=== PATIENT | male | born 1955 | race Caucasian/White ===

== ENCOUNTER 2019-11-12 17:29 | Inpatient (IN) ==
[2019-11-12] MEDS ORDERED: PROTONIX IV ONE (17:50)
[2019-11-12] MEDS ORDERED: NS 1,000 ML IV ONE ×3 (17:50→21:00)
[2019-11-12] MEDS ORDERED: SODIUM CHLORIDE 0.9% INJ ONE ×3 (17:50→21:30)
[2019-11-12] MEDS ORDERED: ZOFRAN IV ONE (17:50)
--- NOTE | 2019-11-12 17:57 | PROVIDER DOCUMENTATION ---
HPI-Abdominal Pain/GI Problem - General Chief Complaint: GI Bleed Stated Complaint: black emesis Time Seen by Provider: 11/12/19 17:43 Source: patient Allergies/Adverse Reactions: Patient Allergies Allergy/AdvReac Type Severity Reaction Status Date / Time naproxen sodium * Allergy ITCHING Verified 04/22/19 13:08 [From [facility]] Home Medications: Home Medication List Medication Instructions Recorded Confirmed Last Taken Type Metoprolol [Lopressor] 25 mg PO DAILY #30 tablet 04/22/17 11/12/19 06/07/18 Rx Amlodipine Besylate 5 mg PO DAILY 06/07/18 11/12/19 06/07/18 History Aspirin [Aspir-Low] 81 mg PO DAILY 11/12/19 11/12/19 Unknown History - History of Present Illness-ABD Nature of Presenting Problems: Patient is a 63 yom who presents via EMS following an episode of black coffee- ground emesis and a syncope episode following the episode of vomiting. Pt states he was sitting on the ground when he vomited and passed out. States he has had generalized weakness all day today and mild intermittent RLQ abdominal pain x 2 days. Denies melena or any other complaints. Review of Systems - Adult - REVIEW OF SYSTEMS - ADULT Constitutional: reports: no symptoms reported. denies: fever Eyes: reports: no symptoms reported Ears, Nose, Mouth & Throat: reports: no symptoms reported Cardiovascular: reports: no symptoms reported Respiratory: reports: no symptoms reported Gastrointestinal: reports: see HPI Genitourinary: reports: no symptoms reported Musculoskeletal: reports: see HPI (generalized weakness) Integumentary: reports: no symptoms reported Neurological: reports: no symptoms reported Psychiatric: reports: no symptoms reported Endocrine: reports: no symptoms reported Hematologic/Lymphatic: reports: no symptoms reported Allergic/Immunologic: reports: no symptoms reported All Other Systems: Reviewed and Negative Past History - Adult - PAST MEDICAL HISTORY-ADULT Review of Records: reports: Nursing Assessment Review, Medications Reviewed, Social history reviewed & non-contributory. Major Childhood Illnesses: reports: denies history Cardiovascular: reports: HTN Respiratory: reports: denies history Gastrointestinal: reports: denies history Obstetrical/Gynecological: reports: denies history Genitourinary: reports: denies history Musculoskeletal: reports: denies history Neurological: reports: headaches/migraines Endocrine/Immune: reports: denies history Other Conditions: reports: denies history - PRIOR SURGERIES/PROCEDURES Surgical/Procedure History: reports: reviewed, not pertinent, orthopedic (extremity), back/neck - IMMUNIZATION STATUS Childhood Immunizations: See Nurse Assessment Flu Vaccine: See Nurse Assessment - FAMILY HISTORY Family History: reviewed, not pertinent - SOCIAL HISTORY Smoking: cigarettes, less than 1 pack/day Substance Use: none/never Alcohol Use Frequency: never Physical Exam-General - PHYSICAL EXAM-ADULT Initial Vital Signs Reviewed: Yes - CONSTITUTIONAL General Appearance: alert, no apparent distress. negative: lethargic, slow to respond - EYES Eyes: PERRL/EOMI, pink conjunctivae - HEAD, EARS, NOSE, MOUTH & THROAT HENMT: normocephalic/atraumatic, other (dried dark blood noted to lips) - NECK Neck: full range of motion, supple, normal inspection - RESPIRATORY Respiratory: chest non-tender, lungs clear, normal breath sounds, no pleuratic chest pain, no respiratory distress, no accessory muscle use - CARDIOVASCULAR Cardiovascular: normal peripheral pulses, regular rate, rhythm, no edema, no gallop, no murmur - GASTROINTESTINAL (ABDOMEN) Abdominal Exam: normal bowel sounds, non tender, distended. negative: guarding, rigid, tenderness - MUSCULOSKELETAL Back Exam: normal inspection Extremity: normal range of motion, non-tender, normal inspection - SKIN Integumentary: normal color, warm/dry. negative: cyanosis, diaphoresis, jaundice, mottled, pallor - NEUROLOGIC Neurologic: grossly normal, no motor/sensory deficits - PSYCHIATRIC Psych/Mental Status: normal mood/affect, normal thought content, normal thought process, oriented x 3 Progress - PLAN OF CARE/RESULTS Progress/Plan/Lab Results: Vital Signs - 8 hr 11/12/19 17:47 Temperature 98.2 F Pulse Rate 88 Respiratory Rate 24 Blood Pressure 105/67 O2 Sat by Pulse Oximetry 92 L Laboratory Results - last 24 hr 11/12/19 17:45 POC Glucose 132 H Orders Category Date Time Status Cardiac Monitoring NOW Care 11/12/19 17:52 Active IV Insertion NOW Care 11/12/19 17:52 Active NEWS Score >or=5:Order NEWS Bundle S.O. NOW Care 11/12/19 17:51 Active Notify Provider of NEWS Score NOW Care 11/12/19 17:52 Active Nursing- Obtain EKG ONCE Care 11/12/19 17:50 Active Orthostatic Vital Signs NOW Care 11/12/19 17:50 Active CHEST-1 VIEW [RAD] Stat Exams 11/12/19 17:52 Ordered CHEST-2 VIEWS [RAD] Stat Exams 11/12/19 17:[address] ABD/PELVIS W/IV CONT ONLY [CT] Stat Exams 11/12/19 17:[address] HEAD W/O CONTRAST [CT] Stat Exams 11/12/19 17:49 Ordered BLOOD CULTURE [BLDCUL] Stat Lab 11/12/19 17:52 Uncollected CBC WITH DIFF [HEME] Stat Lab 11/12/19 17:52 Uncollected CK PROFILE [SP CHEM] Stat Lab 11/12/19 17:52 Uncollected COMPREHENSIVE METABOLIC PANEL [CHEM] Stat Lab 11/12/19 17:48 Uncollected COMPREHENSIVE METABOLIC PANEL [CHEM] Stat Lab 11/12/19 17:53 Uncollected LACTATE, PLASMA [CHEM] Q3H Lab 11/12/19 18:00 Uncollected LACTATE, PLASMA [CHEM] Q3H Lab 11/12/19 21:00 Uncollected LACTATE, PLASMA [CHEM] Q3H Lab 11/13/19 00:00 Uncollected OCCULT BLOOD SCREENING [STOOL] Stat Lab 11/12/19 17:50 Uncollected PROTIME WITH INR [COAG] Stat Lab 11/12/19 17:50 Uncollected TROPONIN T HIGH SENSITIVITY Stat Lab 11/12/19 17:50 Uncollected TYPE & SCREEN [BBK] Stat Lab 11/12/19 17:50 Uncollected UA NIMS W/REFLEX CULT [URINALYSIS] Stat Lab 11/12/19 17:50 Uncollected 0.9% Sodium Chloride Inj [Ns] 1,000 ml Med 11/12/19 17:50 Active IV 999 mls/hr Ondansetron [Zofran] Med 11/12/19 17:50 Discontinued 4 mg IV NOW ONE Pantoprazole [Protonix] Med 11/12/19 17:50 Discontinued 40 mg IV NOW ONE Sodium Chloride 0.9% Med 11/12/19 17:50 Discontinued 10 ml INJ NOW ONE O2 Per Protocol Stat Oth 11/12/19 17:52 Active EKG [EKG] Stat Ther 11/12/19 17:50 Ordered Saw and discussed patient with JER Monsalve. Patient with WBC to 24k of unknown cause, covered with antibiotics. Reports coffee ground emesis, orthostatic hypotension but H/H stable at this time. CT showing mass around aorta which is concerning. Unknown cause at this time. Patient admitted to hospitalist. Adi Monsalve spoke to Dr Gaines and Dr Beltrán for consults. Further orders to be placed by hosp. Explained all the results to the patient. He has no questions at this time and appears comfortable. Result Diagrams: 11/12/19 18:15 11/12/19 18:15 - REASSESSMENT Reassessment #1 Time Reassessed: 20:19 Status: improving (Nausea improved with meds. No vomiting since meds. Update given. Awaiting CT reports.) - XRAY 1 XRAY Study: Chest ([facility] - [address] [facility] [address], [place] [address] [facility] - [address] [place] [address] Department of Imaging Patient: LING ANDERSON EADM Date: 11/12/19#: [id number] : 8A Status: [facility]#: [id number] Age/Sex: 63/MRoom/Bed: Loc: ED Ordering Physician: Sim Monsalve Family Physician: None,PCP Reason for Procedure: ruq pain, sepsis protocol Signed EXAM: CHEST-1 VIEW HISTORY: ruq pain, sepsis protocol TECHNIQUE: Single view COMPARISON: 06/13/2018 FINDINGS: The lungs are well expanded. The heart is not enlarged. The vessels are not distended. There are no infiltrates. No effusion identified. IMPRESSION: No pneumonia Electronically signed by Bib Traylor 11/12/2019 7:13 PM 11/12/191912 Interpreting Physician: Bib Traylor MD Dictated Date/Time: 11/12/191912 cc: Sim Monsalve; None,PCP) - CT/MRI 1 CT Study: Head ([facility] - [address], [address], [place] [address] [facility] - [facility] [place] [address] Department of Imaging Patient: LING ANDERSON EA Date: 11/12/19MR#: [id number] : [facility] Status: [facility]#: [id number] Age/Sex: 63/MRoom/Bed: Loc: ED Ordering Physician: Sim Monsalve Family Physician: None,PCP Reason for Procedure: syncope Signed EXAM: CT HEAD W/O CONTRAST HISTORY: syncope TECHNIQUE: CT head without contrast COMPARISON: None. FINDINGS: No parenchymal hemorrhage. No epidural or subdural hematoma. No subarachnoid hemorrhage. No mass identified on this noncontrasted exam. No hydrocephalus. No sinus opacification. IMPRESSION: No hemorrhage. Negative brain CT without contrast. This exam was performed using automated exposure control, adjustment of mA or kV according to patient size, and/or use of iterative reconstruction technique. Electronically signed by Bib Traylor 11/12/2019 8:25 PM 11/12/192024 Interpreting Physician: Bib Traylor MD Dictated Date/Time: 11/12/192023 cc: Sim Monsalve; None,PCP) 2 CT Study: Abdomen, Pelvis ([facility] - [address], [address], [place] [address] [facility] - [facility] [place] [address] Department of Imaging Patient: LING ANDERSON EADM Date: 11/12/19MR#: [id number] : 1955DM Status: [facility]#: [id number] Age/Sex: 63/MRoom/Bed: Loc: ED Ordering Physician: Sim Monsalve Family Physician: None,PCP Reason for Procedure: hematemesis, syncope Signed EXAM: CT ABD/PELVIS W/IV CONT ONLY HISTORY: hematemesis, syncope TECHNIQUE: CT abdomen and pelvis with intravenous contrast, but without oral contrast COMPARISON: None. FINDINGS: There is a large hypodense area adjacent to the distal descending aorta measuring 5.3 cm in AP diameter, 7.2 cm in transverse diameter, and 8.9 cm in length. This surrounds all but the anterior portion of the aorta. No definite enhancement. This extends just beneath the gastroesophageal junction. No adjacent bony abnormality. Prominent atherosclerosis. There is fatty infiltration of the liver. No calcified gallstones or adjacent inflammation. Normal spleen. The stomach is distended with debris. Normal pancreas. There is a 2.6 cm right adrenal nodule and a 1.6 cm left adrenal nodule. Normal kidneys. No hydronephrosis. No bowel ob struction. No inflammation about the cecum. No abscess. No ascites. Urinary bladder is distended and normal. Normal prostate. IMPRESSION: 1.Large para- aortic mass. This does not have the typical appearance of an aneurysm. 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 2.Fatty infiltration of the liver 3.Adrenal nodules This exam was performed using automated exposure control, adjustment of mA or kV according to patient size, and/or use of iterative reconstruction technique. Electronically signed by Bib Traylor 11/12/2019 8:20 PM 11/12/192019 Interpreting Physician: Bib Traylor MD Dictated Date/Time: 11/12/192007 cc: Severy,Smi C. [employer]; None,PCP) - CONSULTS/PCP/HOSPITALIST Notification #1 *Consult/PCP/Hospitalist*: Dr. Darling Time Discussed: 20:40 Reason/Comments: hematemesis, syncope, aortic mass Consult Disposition: Will see in ED, Admit (Requests consult to vascular) #2 Consult: Dr. Gaines Time Discussed: 20:45 Reason/Comments: aortic mass Consult Disposition: other (Admit to HPS, will see pt tomorrow. Recommends GI consult.) #3 Consult: Dr. Beltrán Time Discussed: 21:02 Reason/Comments: hematemesis Consult Disposition: other (Requests PPI bid, serial H&Hs, will see pt tomorrow.) Departure - Departure Date of Disposition Decision: 11/12/19 Time of Disposition Decision: 20:30 DIAGNOSIS: Fatty liver GI bleeding Qualifiers: GI bleed type/associated pathology: unspecified gastrointestinal hemorrhage type Qualified Code(s): K92.2 - Gastrointestinal hemorrhage, unspecified Hematemesis Qualifiers: Nausea presence: with nausea Qualified Code(s): K92.0 - Hematemesis Syncope Qualifiers: Syncope type: unspecified Qualified Code(s): R55 - Syncope and collapse Mass in the abdomen Qualifiers: Abdominal location: unspecified location Qualified Code(s): R19.00 - Intra- abdominal and pelvic swelling, mass and lump, unspecified site Abdominal pain Qualifiers: Abdominal location: unspecified location Qualified Code(s): R10.9 - Unspecified abdominal pain Hypotension Qualifiers: Hypotension type: unspecified hypotension type Qualified Code(s): I95.9 - Hypotension, unspecified Leukocytosis Qualifiers: Leukocytosis type: unspecified Qualified Code(s): D72.829 - Elevated white blood cell count, unspecified Disposition: ADMITTED INPATIENT 09 Certified Medical Emergency: Emergent Condition: Fair Referrals and Follow-Ups: None,PCP [Primary Care Provider] - - Critical Care Note This patient required my direct & personal management of CC.: Yes Total Time (mins): 75 Critical Care Statement: This patient required my direct personal management to treat or rule out processes, the absence of which, could potentiallly result in sudden, clinically significant life or limb threatening deterioration. Attestation - Physician/ JOSIAH Attestation Patient care was provided by Advanced Practice Provider:: Yes Advanced Practice Provider:: Bello,Sim C. Advanced Practice Provider documentation review:: The Mid-level provider documentation, treatment plan and medical decision making was reviewed by the physician who agrees with all treatment and medical decision making by the MLP. The physician spent face to face time with patient:: Yes Advanced Practice Provider documentation review:: Supervising physician onsite and consulted in the evaluation and care of this patient. The physician did have a face to face encounter with the patient.
[2019-11-12 19:04] LABS: INR 1.18; PROTIME 15.2 Seconds (11.0-16.0)
[2019-11-12 19:07] LABS: EOS# 0.17 X1000 (0.0-0.7); EOS% 0.7 % (0.0-10.0); HEMATOCRIT 41.1 % (42.0-52.0); HEMOGLOBIN 13.3 g/dL (14.0-18.0); LYMPH# 2.31 X1000 (1.2-3.4); LYMPH% 9.4 % (20.5-51.1); MCHC 32.4 g/dL (33-37); MCV 89.5 FL (81-99); MONO% 7.3 % (1.7-9.3); MPV 10.3 FL (7.4-10.4); PLT 454 X1000 (130-400); RBC 4.59 XMIL (4.7-6.1); RDW 14.1 % (11.5-14.5); WBC 24.57 X1000 (4.8-10.8)
--- NOTE | 2019-11-12 19:16 | Diag Imaging Result Doc PS360 ---
EXAM: CHEST-1 VIEW HISTORY: ruq pain, sepsis protocol TECHNIQUE: Single view COMPARISON: 06/13/2018 FINDINGS: The lungs are well expanded. The heart is not enlarged. The vessels are not distended. There are no infiltrates. No effusion identified. IMPRESSION: No pneumonia Electronically signed by Bib Traylor 11/12/2019 7:13 PM
[2019-11-12 19:19] LABS: AGAP 14; ALB/GLOB RATIO 1.6; ALBUMIN 3.7 g/dL (3.5-5.0); ALKALINE PHOSPHATASE 175 U/L (32-122); BANDS 1 % (0-1); BUN 26 mg/dL (8-22); CHLORIDE 99 mmol/L (98-107); CK PROFILE 55 U/L (24-204); COSMO 278; CREATININE 1.1 mg/dL (0.7-1.2); ESTIMATED GFR > 60; GLUCOSE 116 mg/dL (70-104); GOT 21 U/L (10-34); GPT 22 U/L (10-44); LYMPHS 5 % (21-51); MONO 4 % (1-9); POTASSIUM 4.4 mmol/L (3.5-5.1); SEGS 87 % (42-75); SODIUM 136 mmol/L (136-145); TCO2 23 mmol/L (25-35); TOTAL BILIRUBIN 0.39 mg/dL (0.20-1.00)
[2019-11-12 19:20] LABS: LARGE PLATELETS OCCASIONAL
[2019-11-12 19:21] LABS: ANISOCYTOSIS 2+
[2019-11-12] MEDS ORDERED: ZOSYN 3.375 GM in NS 50 ML IV ONE (19:46)
--- NOTE | 2019-11-12 20:22 | Diag Imaging Result Doc PS360 ---
EXAM: CT ABD/PELVIS W/IV CONT ONLY HISTORY: hematemesis, syncope TECHNIQUE: CT abdomen and pelvis with intravenous contrast, but without oral contrast COMPARISON: None. FINDINGS: There is a large hypodense area adjacent to the distal descending aorta measuring 5.3 cm in AP diameter, 7.2 cm in transverse diameter, and 8.9 cm in length. This surrounds all but the anterior portion of the aorta. No definite enhancement. This extends just beneath the gastroesophageal junction. No adjacent bony abnormality. Prominent atherosclerosis. There is fatty infiltration of the liver. No calcified gallstones or adjacent inflammation. Normal spleen. The stomach is distended with debris. Normal pancreas. There is a 2.6 cm right adrenal nodule and a 1.6 cm left adrenal nodule. Normal kidneys. No hydronephrosis. No bowel obstruction. No inflammation about the cecum. No abscess. No ascites. Urinary bladder is distended and normal. Normal prostate. IMPRESSION: 1.Large para-aortic mass. This does not have the typical appearance of an aneurysm. 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 2.Fatty infiltration of the liver 3.Adrenal nodules This exam was performed using automated exposure control, adjustment of mA or kV according to patient size, and/or use of iterative reconstruction technique. Electronically signed by Bib Traylor 11/12/2019 8:20 PM
--- NOTE | 2019-11-12 20:28 | Diag Imaging Result Doc PS360 ---
EXAM: CT HEAD W/O CONTRAST HISTORY: syncope TECHNIQUE: CT head without contrast COMPARISON: None. FINDINGS: No parenchymal hemorrhage. No epidural or subdural hematoma. No subarachnoid hemorrhage. No mass identified on this noncontrasted exam. No hydrocephalus. No sinus opacification. IMPRESSION: No hemorrhage. Negative brain CT without contrast. This exam was performed using automated exposure control, adjustment of mA or kV according to patient size, and/or use of iterative reconstruction technique. Electronically signed by Bib Traylor 11/12/2019 8:25 PM
[2019-11-12] MEDS ORDERED: PROTONIX IV SCH (21:00)
[2019-11-12 21:24] LABS: URINE SOURCE CLEAN CATCH
[2019-11-12 21:26] LABS: LDH 570 U/L (135-225); TOTAL IRON 63 ug/dL (53-167)
[2019-11-12] MEDS ORDERED: TYLENOL PO PRN (21:30)
[2019-11-12] MEDS ORDERED: ZOFRAN IV PRN (21:30)
[2019-11-12 21:32] LABS: BILIRUBIN URINE NEGATIVE (NEGATIVE); BLOOD URINE NEGATIVE (NEGATIVE); COLOR YELLOW; GLUCOSE URINE NEGATIVE (NEGATIVE); KETONE URINE 10 mg/dL (NEGATIVE); LEUKOCYTES URINE NEGATIVE (NEGATIVE); NITRITE URINE NEGATIVE (NEGATIVE); PROTEIN URINE TRACE mg/dL (NEGATIVE); TURBIDITY URINE CLEAR (CLEAR); UROBILINOGEN URINE 2 mg/dL (NORMAL)
[2019-11-12 21:40] LABS: UR EPITHELIAL CELLS <10 /HPF (<10); URINE BACTERIA NEGATIVE /HPF; URINE RBC <10 /HPF (<10); URINE WBC <10 /HPF (<10)
[2019-11-12 21:42] LABS: FERRITIN 214 ng/mL (30-400)
[2019-11-12 21:50] LABS: URINE CRYSTALS NONE SEEN
[2019-11-12 22:03] LABS: HEMATOCRIT 37.4 % (42.0-52.0); HEMOGLOBIN 11.9 g/dL (14.0-18.0)
[2019-11-12 22:06] LABS: RETIC% 1.16 % (0.8-2.1); RETIC-HE 32.4 PG (28.2-36.6)
--- NOTE | 2019-11-12 22:14 | HISTORY AND PHYSICAL ---
FAMILY CARE PROVIDER: None listed. REASON FOR ADMISSION: Vomiting black coffee-ground emesis today and subsequent syncope. HISTORY OF PRESENT ILLNESS: Mr. Fuentes Fox is a 63-year-old white male with history of CAD and hypertension. He reports feeling a little woozy and nauseous, and subsequently vomited a significant amount of black coffee-ground emesis. He felt very weak and shortly passed out. He did come-to right before EMS got there and was brought into the ER. On his way to the ER he requested that they elevate his head about 30-40 degrees, but then again in the ER according to EMS the patient became very lightheaded and almost passed out again, with some kind of vague jerking episode. This resolved immediately once he was laid in supine position. He subsequently received 1 L of fluid and he is still orthostatic, his blood pressure dropping in the 70s on standing; however, he tells me that he feels a whole lot better and is not lightheaded. He denies any antecedent or current chest pain, palpitations or lightheadedness at this point in time. No shortness of breath or any other additional cardiorespiratory symptoms. No orthopnea, PND or leg swelling. He denies bleeding from any hematochezia, hematuria or bleeding from any orifice. He does state that 2 days ago he had right lower quadrant pain which since progressed to right upper quadrant pain which has been intermittent, sharp, transient, with no specific aggravating or relieving factors. He denies any use of [id number] medications including NSAIDs or fish oil. He denies any recent change in his home medications. He does take aspirin for a stent which was placed a year ago. No or additional GI complaints. No focal neurological complaints at this time. No polyuria or polydipsia. REVIEW OF SYSTEMS: Twelve system review was done. Positive findings per HPI. ALLERGIES: Sodium naproxen. HOME MEDICATIONS: He is on metoprolol 25 mg daily, amlodipine 5 mg daily, aspirin 81 mg daily. FAMILY HISTORY: Negative for any heart disease, cancer or diabetes. PAST SURGICAL HISTORY: Includes a heart stent, neck surgery and knee surgery. SOCIAL HISTORY: He smokes 1 pack a day. No alcohol or drug use. He is , lives with his . LABORATORY DATA: Troponin is negative. His white count is 24,000, hemoglobin and hematocrit 13 and 41, platelets 454,000, 87% neutrophils, 2+ anisocytosis. BUN is 26, creatinine 1.1, glucose is 160, alkaline phosphatase 175. Lactate 2.6. PT 15, INR 1.1. DIAGNOSTIC DATA: CT scan of the abdomen and pelvis shows a large hypodense area adjacent to the descending aorta measuring 5.3 to 7.2 in the transverse diameter and 8.9 cm in length, and surrounds the aorta. There is pulmonary atherosclerosis of the mesenteric vasculature. There is a 2.6 cm right nodule. They suspect that this suggests that this might be para- aortic fibrosis versus a large kira mass. Fatty liver disease is also noted. Chest film did not show any acute findings. Head CT was essentially devoid of any acute findings. EKG is pending. PHYSICAL EXAMINATION: VITAL SIGNS: Blood pressure 110/71, heart rate 90, respiratory rate 17, temperature is 98.2 degrees. He has 93% O2 saturation on room air. He is orthostatic. GENERAL: He is a pleasant middle-aged white man, not in acute distress. AAO x3. Normal mood and affect. HEAD, EYES, EARS, NOSE, THROAT: Head is normocephalic, atraumatic. Eyes: MEMO, EOMI. He is anicteric and not pale. ENT and oropharynx exam is grossly normal. NECK: Supple. No JVD or carotid bruit. No thyromegaly. CHEST: Clear when auscultated with good air entry in both lung schultz. CARDIOVASCULAR SYSTEM: First and second heart sounds are heard. No gallops, murmurs or rubs. Rhythm is regular. ABDOMEN: Slightly protuberant, soft, but surprisingly with no tenderness. No mass or organomegaly appreciated. Bowel sounds are hypoactive. RECTAL: Exam deferred at this time. EXTREMITIES: The patient has good distal pulse volumes, regular, symmetrical. No edema, clubbing or peripheral cyanosis NEUROLOGIC: No gross focal deficits. SKIN: Intact, with no lesions, erythema or skin breakdown. MUSCULOSKELETAL: Exam is grossly normal. ASSESSMENT: 1. Upper gastrointestinal bleed, could be related to possible peptic ulcer disease from aspirin use. 2. Coronary artery disease, currently stable, asymptomatic. 3. Hypertension. 4. 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 5. Syncope secondary to depleted intravascular volume from blood loss. PLAN: The patient will have aggressive crystalloid infusion to make up for volume loss. We will type and screen the patient and do serial hemoglobin and hematocrit, and transfuse only if hemoglobin is less than 8 in this case, due to the fact he has underlying coronary artery disease. We will repeat another troponin level much later to ensure he is not having subclinical demand ischemia. We will start the patient on IV PPIs. Anemia workup was done due to the fact he did have documented anisocytosis. We will consult General Surgery in light of the impressive para- aortic mass which could be representing lymphoma. It could also represent some collagen, i.e., or soft tissue mass which is a retroperitoneal mass. If amenable, a biopsy may be taken; however, I do not think this mass has anything at this point in time to do with his presentation for upper GI bleed. I strongly recommend reinstating aspirin as soon as possible. Consult GI for an immediate endoscopy so we can ensure the patient does not have a high-risk lesion, i.e., visible vessel. cc: Salvador Darling MD MTDD
[2019-11-12] MEDS: NS 1,000 ML IV SCH (23:45)
--- NOTE | 2019-11-12 23:57 | EKG Report ---
Test Performed on : 11/12/2019 5:53:57 PM Test Reason : SYNCOPE Blood Pressure : / mmHG Vent. Rate : 088 BPM Atrial Rate : 088 BPM P-R Int : 138 ms QRS Dur : 082 ms QT Int : 364 ms P-R-T Axes : 039 063 037 degrees QTc Int : 440 ms Normal sinus rhythm. Normal ECG When compared with ECG of 13-JUN-2018 21:21, No significant change was found Unconfirmed Result
[2019-11-13 00:04] LABS: HEMATOCRIT 35.4 % (42.0-52.0); HEMOGLOBIN 11.2 g/dL (14.0-18.0)
[2019-11-13 03:31] LABS: LYMPH% 15.3 % (20.5-51.1)
[2019-11-13 04:13] LABS: AGAP 11; ALB/GLOB RATIO 1.3; ALBUMIN 2.8 g/dL (3.5-5.0); ALKALINE PHOSPHATASE 122 U/L (32-122); BUN 31 mg/dL (8-22); CALCIUM 8.1 mg/dL (8.8-10.2); CHLORIDE 109 mmol/L (98-107); COSMO 289; CREATININE 0.9 mg/dL (0.7-1.2); ESTIMATED GFR > 60; GLUCOSE 88 mg/dL (70-104); GOT 15 U/L (10-34); GPT 16 U/L (10-44); MAGNESIUM 1.9 mg/dL (1.5-2.7); POTASSIUM 4.6 mmol/L (3.5-5.1); SODIUM 142 mmol/L (136-145); TCO2 22 mmol/L (25-35); TOTAL BILIRUBIN 0.28 mg/dL (0.20-1.00); TOTAL PROTEIN 4.9 g/dL (6.3-8.3)
[2019-11-13 06:22] LABS: RBC 3.79 XMIL (4.7-6.1); WBC 16.55 X1000 (4.8-10.8)
[2019-11-13 06:23] LABS: BASO# 0.04 X1000 (0.0-0.2); BASO% 0.2 % (0.0-0.8); EOS% 0.6 % (0.0-10.0); HEMATOCRIT 34.3 % (42.0-52.0); HEMOGLOBIN 10.9 g/dL (14.0-18.0); IMM GRAN% 0.6 % (0.0-0.5); LYMPH# 2.53 X1000 (1.2-3.4); MCH 28.8 PG (27-31); MCHC 31.8 g/dL (33-37); MCV 90.5 FL (81-99); MONO# 1.44 X1000 (0.11-0.59); MONO% 8.7 % (1.7-9.3); MPV 10.5 FL (7.4-10.4); NEUT# 12.34 X1000 (1.4-6.5); NEUT% 74.6 % (42.2-75.2); PLT 374 X1000 (130-400); RDW 14.1 % (11.5-14.5)
[2019-11-13] MEDS: DULCOLAX PR SCH ×3 (07:20→20:16)
--- NOTE | 2019-11-13 08:39 | PROGRESS NOTE ---
DATE: 11/13/2019 INTERVAL HISTORY: Mr. Fox had presented with hematemesis and syncope; he was resuscitated with intravenous fluids. OVERNIGHT EVENTS: Since coming to the [facility] bed, the patient has not had any vomiting episode. He has not been having any syncopal episode, and he is feeling better. We discussed about aortic mass. We discussed about acute upper gastrointestinal bleed somewhat suspicious of peptic ulcer disease. We discussed about the possibility of lymphoma. I answered all of his questions. REVIEW OF SYSTEMS: Negative for chest pain. Negative for shortness of breath. Negative for abdominal pain. Negative for diarrhea or constipation. VITALS: Temperature 97.9 degrees, pulse 79, respiratory rate 17, blood pressure 115/66, saturating 97% on room air. PHYSICAL EXAMINATION: General: Mr. Fox is not in acute distress. No pallor, cyanosis, clubbing, or icterus. Oral cavity: Moist. Lungs: Air entry bilaterally equal. No wheeze, rhonchi, or crackles. Cardiovascular: S1, S2 normal. No murmur, rub, or gallop. Abdomen: Soft, nontender. No mass, hepato or splenomegaly palpated. Active bowel sounds. Extremities: No lower extremity edema. Neurologic: He is alert and oriented x3. LABS: Suggestive of WBC of 16,016, hemoglobin 10.9, platelet 374. His chloride is 109, BUN 31, creatinine 0 9, calcium is 8.1. MICROBIOLOGY: Blood cultures have been collected. X-RAYS: No new imaging. ASSESSMENT AND PLAN: 1. Acute upper gastrointestinal bleed leading to acute blood loss anemia. Differential includes peptic ulcer disease, aspirin- induced peptic ulcer disease versus others. The patient also smokes and he was counseled about smoking cessation. Continue to monitor frequent complete blood counts, intravenous Protonix. I will keep him on nothing by mouth and appreciate Gastroenterology recommendations. I will also start him on lactulose, bisacodyl and Reglan for his distended stomach, as well as stool throughout colon. Appreciate Gastroenterology recommendation about the need for esophagogastroduodenoscopy. 2. Acute blood loss anemia. Continue to monitor complete blood count and will transfuse with goal hemoglobin more than 7 to 8 g/dL. I would also start him on iron tablets with multivitamins. 3. History of coronary artery disease requiring stent in August 2018. He has passed 12 months' timeline, and has only been on aspirin since his stent was placed. He is not listed to be taking any other antiplatelet medication which also is confirmed by patient. I will resume his home medications as reconciled. He surprisingly is not listed to be taking any cholesterol medications. 4. Essential hypertension. I will hold his home metoprolol amlodipine considering he was hypotensive on presentation, which could be because of hypovolemia due to vomiting, and will resume in the future as necessary. 5. Periaortic mass. The patient denies known history of cancer. However, he is an active smoker. His current presentation may or may not be related to this mass. However, this mass appears to be in close proximity with stomach. He may eventually need a biopsy and outpatient followup. The patient was counseled about this. General surgical team has been consulted. 6. Syncope, likely because of hypovolemia due to vomiting, as well as hypotension related to it, now resolved. Head CT on presentation did not have acute intracranial pathology. DISPOSITION: Continue to monitor patient in PVC. He was allowed to ask questions related to his medical illnesses. All of his questions satisfactorily answered. cc: Preet Coon MD
[2019-11-13] MEDS: LACTULOSE PO SCH ×2 (08:49→20:16)
[2019-11-13] MEDS: REGLAN IV SCH ×2 (08:52→17:36)
[2019-11-13] MEDS: PROTONIX IV SCH ×2 (08:52→20:15)
[2019-11-13 09:36] LABS: HEMATOCRIT 34.3 % (42.0-52.0); HEMOGLOBIN 10.9 g/dL (14.0-18.0)
[2019-11-13] MEDS: NS 1,000 ML IV SCH ×2 (11:29→20:20)
--- NOTE | 2019-11-13 12:00 | GENERAL SURGERY CONSULTATION ---
DATE: 11/13/2019 REASON FOR CONSULTATION: Periaortic mass. HISTORY OF PRESENT ILLNESS: This is a 63-year-old male who was in his usual state of health until yesterday afternoon when he began feeling very weak and nauseated and had 1 episode of black coffee-grounds emesis. He may have had a syncopal episode and passed out. He was quite lightheaded and was orthostatic in the emergency room. However, after receiving a L of fluid, he was still orthostatic, but asymptomatically better. He denies chest pain, shortness of breath, fever, chills, change in appetite, night sweats, weight loss, abdominal pain, diarrhea, constipation or other systemic complaints. No prior episodes similar to this. PAST MEDICAL HISTORY: High blood pressure, coronary artery disease. PAST SURGICAL HISTORY: Coronary stent placement, neck surgery and knee surgery. FAMILY HISTORY: Reviewed and noncontributory. HOME MEDICATIONS: Metoprolol, amlodipine, aspirin. ALLERGIES: Naproxen. SOCIAL HISTORY: Smokes a pack per day. No alcohol or illicit drug use. He is . REVIEW OF SYSTEMS: Ten systems reviewed and negative except as noted above. PHYSICAL EXAMINATION: Vital Signs: Temperature 97.9 degrees, pulse 79, respirations 17, blood pressure 115/66, O2 saturation 97%. General: Well-developed, well-nourished male who looks his stated age, in no acute distress. HEENT: Normocephalic, atraumatic. Extraocular muscles intact. Pupils equal, round, reactive to light. Sclerae anicteric. Moist mucous membranes. Neck: Supple. No thyromegaly. CV: Regular rate and rhythm. Respiratory: Bilateral breath sounds. No work of breathing. GI: Soft, nontender, nondistended. No organomegaly or mass. Extremities: No clubbing, cyanosis, or edema. Musculoskeletal: Moves all extremities equally and well. Skin: Warm and dry. No rash. LABORATORY: White blood cell count 95914 yesterday, 16,000 today. Hemoglobin 13 on admission, 10.9 this morning. Hematocrit 41 on admission, 34 this morning. Of note, his hemoglobin hematocrit over the last 3 checks are right around 11 and 34 to 35 respectively. Platelet count 374,000. Metabolic profile reviewed and unremarkable. INR 1.18. Urinalysis unremarkable. IMAGING: A head CT was performed which was negative for any intracranial process. Chest x-ray was performed which showed no pneumonia, no cardiomegaly, no infiltrates, no effusion. Abdominal pelvis CT scan with IV contrast was performed yesterday which shows a large periaortic mass up to 8.9 cm in length abutting the aorta in the region of the left lobe of the liver, the spleen, the gastroesophageal junction and the lower border of the heart in the lower mediastinum. It appears to be retroperitoneal and does not appear to be aneurysmal. There are bilateral adrenal nodules measuring 2.6 cm on the right and 1.6 cm on the left and fatty infiltration of the liver. ASSESSMENT AND PLAN: A 63-year-old male presenting with syncope and coffee-grounds emesis concerning for upper GI bleed. Certainly esophageal or gastroduodenal lesions are of concern. Gastroenterology has been consulted. He appears to be hemodynamically stable and not actively bleeding overnight. I do not think this is related to his periaortic mass. For that we will consult Hematology Oncology and I would recommend consideration of ultrasound guided fine-needle aspiration biopsy of this mass at a facility that is capable of this. No acute surgical plans at this time. Available as needed if the bleeding becomes an issue. cc: Bogdan Gaines MD
[2019-11-13 16:40] LABS: BASO% 0.7 % (0.0-0.8); EOS# 0.12 X1000 (0.0-0.7); EOS% 0.9 % (0.0-10.0); HEMATOCRIT 33.2 % (42.0-52.0); HEMOGLOBIN 10.5 g/dL (14.0-18.0); IMM GRAN# 0.05 X1000 (0.0-0.04); IMM GRAN% 0.4 % (0.0-0.5); LYMPH# 2.66 X1000 (1.2-3.4); LYMPH% 19.5 % (20.5-51.1); MCH 28.7 PG (27-31); MCHC 31.6 g/dL (33-37); MCV 90.7 FL (81-99); MONO# 1.29 X1000 (0.11-0.59); MONO% 9.5 % (1.7-9.3); MPV 10.2 FL (7.4-10.4); NEUT# 9.43 X1000 (1.4-6.5); PLT 343 X1000 (130-400); RBC 3.66 XMIL (4.7-6.1); RDW 13.9 % (11.5-14.5); WBC 13.65 X1000 (4.8-10.8)
--- NOTE | 2019-11-14 01:33 | GASTROENTEROLOGY CONSULTATION ---
DATE: 11/13/2019 REASON FOR CONSULTATION: Hematemesis. HISTORY OF PRESENT ILLNESS: Mr. Fuentes Fox is a 63-year-old gentleman with past medical history of hypertension, hyperlipidemia, coronary artery disease status post stent in 07/15, tobacco abuse, who presented after having an episode of coffee-ground emesis and syncopal event. The patient reports that he was feeling a little bit dizzy at work. On his way home, he developed a large amount of black coffee-ground emesis and had a syncopal event. He presented to the ER via EMS and had another episode en route. He was found to be orthostatic, requiring fluid resuscitation. The patient, apparently, had one isolated episode of right lower quadrant pain radiating to the right upper quadrant, it was sharp and transient, 2 days prior to admission. He denies any constipation, diarrhea, abnormal weight loss, bright red blood per rectum. He did have an episode of melenic stool this morning. No formal history of cancers. He takes aspirin for his coronary artery disease noted above. REVIEW OF SYSTEMS: As per HPI, otherwise 12 point review of systems is negative. PAST MEDICAL HISTORY: As per HPI. PAST SURGICAL HISTORY: None. MEDICATIONS: Aspirin, metoprolol, Norvasc. ALLERGIES: To naproxen which causes itching. SOCIAL HISTORY: He is a 1 pack per day smoker, down from 2 packs per day. No alcohol or drug use. FAMILY HISTORY: Reviewed and noncontributory. PHYSICAL EXAM: VITAL SIGNS: Temperature is 97.9 degrees, heart rate 86, respiratory rate 16, blood pressure 118/75, O2 saturation 97% on room air. General: Patient is awake, alert, oriented, in no acute distress. HEENT: Sclerae anicteric. Moist mucous membranes. Extraocular motor intact. Neck: Supple. No JVD or lymphadenopathy. Cardiac: Regular rate and rhythm. No murmurs, rubs, or gallops. Lungs: Clear to auscultation bilaterally. No wheezing. Abdomen: Soft, nontender, nondistended. Normoactive bowel sounds. No rebound or guarding. Extremities: No clubbing, cyanosis, or edema. Neurologic: Nonfocal. LABS: White count of 13.6 from 24.7, hemoglobin 10.5 from 11.2, platelets of 343,000. Sodium 142, potassium 4.6, chloride 109, bicarb 22, BUN of 31, creatinine 0.9. Glucose is 88, calcium 8.1. LFTs are within normal limits. LDH of 570, CK of 55, troponin is negative, total protein 4.9, albumin 2.8, lactate of 1.5, vitamin B12 of 247, folate of 5.8, TSH of 1.1. UA shows ketones, trace protein. Blood cultures x2 pending. IMAGING: CT of the head negative. Chest x-ray negative. CT of the abdomen and pelvis with IV contrast shows a large periaortic mass which does not appear to be typical of an aneurysm, most likely represents an enlarged kira mass/lymphoma or periaortic fibrosis. He has fatty liver, no bulging or nodules. The mass measures 5.3 x 7.2 x 8.9 cm. ASSESSMENT AND PLAN: Mr. Fuentes Fox is a 63-year-old gentleman with past medical history of hypertension, hyperlipidemia, coronary artery disease status post stents, tobacco abuse, presents with acute upper gastrointestinal bleed and syncopal episode, found to have folate deficiency, anemia, normal iron studies ,leukocytosis. Abdominal CT shows a all large periaortic mass concerning for kira versus lymphoma versus fibrosis. He is currently on proton pump inhibitor IV b.i.d. I am holding his aspirin. We will plan on diagnostic EGD on Friday. If negative, patient will likely need an endoscopic ultrasound-guided fine-needle aspiration of the aortic mass, which abuts the GE junction, stomach. - Hematemesis - Acute blood loss anemia - Retroperitoneal mass - Syncope - Folate deficiency - Leukocytosis - CAD - Tobacco abuse We will follow with you. Please call with any questions or concerns. [facility]
[2019-11-14 06:11] LABS: BASO# 0.06 X1000 (0.0-0.2); BASO% 0.5 % (0.0-0.8); EOS# 0.18 X1000 (0.0-0.7); EOS% 1.4 % (0.0-10.0); HEMATOCRIT 31.5 % (42.0-52.0); HEMOGLOBIN 10.2 g/dL (14.0-18.0); IMM GRAN# 0.04 X1000 (0.0-0.04); IMM GRAN% 0.3 % (0.0-0.5); LYMPH# 2.07 X1000 (1.2-3.4); MCH 29.1 PG (27-31); MCHC 32.4 g/dL (33-37); MONO# 1.17 X1000 (0.11-0.59); MPV 10.3 FL (7.4-10.4); NEUT# 9.45 X1000 (1.4-6.5); NEUT% 72.8 % (42.2-75.2); PLT 355 X1000 (130-400); WBC 12.97 X1000 (4.8-10.8)
[2019-11-14] MEDS: THERA M PLUS PO SCH ×2 (07:58→07:59)
[2019-11-14] MEDS: PROTONIX IV SCH ×2 (07:58→22:15)
[2019-11-14] MEDS ORDERED: FERROUS SULFATE PO SCH (09:00)
[2019-11-14] MEDS ORDERED: ASPIRIN EC PO SCH (09:00)
[2019-11-14] MEDS ORDERED: LIPITOR PO ONE (09:02)
--- NOTE | 2019-11-14 09:07 | PROGRESS NOTE ---
DATE: 11/14/2019 INTERVAL HISTORY: Mr. Fox's vitals are unremarkable. He does have a slow drop in his hemoglobin, though he denies any hematemesis. He has not had a bowel movement in 24 hours. GI and Surgery had seen the patient. GI is planning EGD tomorrow. SUBJECTIVE: Mr. Fox is feeling better. He denies any more vomiting. He denies chest pain, shortness of breath, or cough, except occasional cough which is routine for him. He denies any more nausea or vomiting. REVIEW OF SYSTEMS: Negative for abdominal pain. Negative for burning urination. Negative for diarrhea. Negative for dizziness or headache. CURRENT MEDICATIONS: Includes acetaminophen, multivitamins, Zofran, and pantoprazole. OBJECTIVE: Vital Signs: Temperature 98.2 degrees, pulse 86, respiratory rate 17, blood pressure 121/76, he is saturating 97% on room air. General: Not in any acute distress. HEENT: Oral cavity is moist. No pallor, cyanosis, clubbing, or icterus. Lungs: Air entry bilaterally equal. No wheeze, rhonchi, crackles. Cardiovascular: S1, S2 normal. No murmur or gallop. Abdomen: Soft, nontender. No hepatosplenomegaly. Active bowel sounds. Extremities: No lower extremity edema. Neurologic: He is alert and oriented x3. IMAGING AND LABORATORY DATA: WBC 12.9, hemoglobin 10.2, platelets 355,000. No BMP today. Stool occult blood test was positive. No new imaging. ASSESSMENT AND PLAN: 1. Acute upper gastrointestinal bleed. Differential includes aspirin-induced peptic ulcer disease versus others. The patient is an active smoker. Continue to monitor CBC every 12 hours. Intravenous Protonix, multivitamin tablet. Gastroenterology is planning endoscopy on 11/15/2019. Appreciate recommendations. He was taken off Reglan and bowel regimen yesterday since he did have a bowel movement yesterday morning. 2. Acute blood loss anemia. Continue to monitor CBC with transfusion goal of keeping hemoglobin more than 7 to 8 g/dL. Continue multivitamins. 3. Periaortic mass without known history of cancer. Differential includes lymphoma, para-aortic fibrosis versus others. If the mass appears to impinge on stomach wall or is causing erosion, it may need biopsy on an urgent basis. Depending on what endoscopy shows tomorrow, the plan would be to pursue biopsy of the mass by transferring him to [facility] via endoscopic ultrasound versus outpatient management. Gastroenterology and Surgery on board. 4. History of coronary artery disease with stent in 08/2018. I am holding his aspirin. Currently, he is normotensive, and because of ongoing gastrointestinal bleed issue, I am holding his antihypertensive medication. I have asked the nursing team to reconcile if he was on any cholesterol medications. 5. Essential hypertension. Hold metoprolol and amlodipine, and add back as tolerated. 6. Syncope on presentation because of hypovolemia due to vomiting, as well as hypotension related to it, now resolved. Head CT on presentation did not have any acute intracranial pathology. I will continue to monitor him in telemetry unit. 7. Disposition. Continue to monitor the patient in PVC. I discussed the plan of care with the patient and his on video call. I discussed with them about gastrointestinal bleed. I discussed with them about para-aortic mass. I answered all of their questions. cc: Preet Coon MD
--- NOTE | 2019-11-14 09:27 | GENERAL SURGERY PROGRESS NOTE ---
DATE: 11/14/2019 SUBJECTIVE: The patient denies abdominal pain, nausea, vomiting, or hematemesis. OBJECTIVE: He is afebrile. Vital signs are stable. General: He is awake, alert, and oriented x3. No acute distress. GI: Soft, nontender, nondistended. Laboratory: White blood cell count 13, hemoglobin 10, hematocrit 31. ASSESSMENT/PLAN: A 63-year-old male with a recent upper gastrointestinal bleed as well as findings of para-aortic retroperitoneal mass. The plans are for esophagogastroduodenoscopy tomorrow. If those findings are unremarkable, then he will need further evaluation with endoscopic ultrasound, fine-needle biopsy at a tertiary referral center in the near future. cc: Bogdan Gaines MD
[2019-11-14 16:22] LABS: BASO# 0.06 X1000 (0.0-0.2); BASO% 0.4 % (0.0-0.8); EOS% 1.5 % (0.0-10.0); HEMATOCRIT 31.4 % (42.0-52.0); HEMOGLOBIN 10.1 g/dL (14.0-18.0); IMM GRAN# 0.07 X1000 (0.0-0.04); IMM GRAN% 0.5 % (0.0-0.5); LYMPH% 15.7 % (20.5-51.1); MCH 28.8 PG (27-31); MCHC 32.2 g/dL (33-37); MCV 89.5 FL (81-99); MONO# 1.22 X1000 (0.11-0.59); MONO% 9.1 % (1.7-9.3); MPV 9.9 FL (7.4-10.4); NEUT# 9.71 X1000 (1.4-6.5); NEUT% 72.8 % (42.2-75.2); PLT 376 X1000 (130-400); RBC 3.51 XMIL (4.7-6.1); WBC 13.36 X1000 (4.8-10.8)
--- NOTE | 2019-11-14 23:05 | PROVIDER PROGRESS NOTE ---
Progress Note S: No acute overnight events. He denies any N/V, abdominal pain, SOB, CP. O: Last Vital Signs Temp 98.7 F 11/14/19 20:00 Pulse 91 H 11/14/19 20:00 Resp 17 11/14/19 20:00 BP 121/74 11/14/19 20:00 Pulse Ox 97 11/14/19 20:00 Height 5 ft 9 in Weight 202 lb 3.2 oz GEN: awake, alert, NAD HEENT: anicteric, MMM NECK: supple, no JVD PULM: CTAB, no wheezing CV: RRR, no murmurs ABD: soft NT/ND, NABS, no rebound or guarding EXT: no cce NEURO: nonfocal LABS: 11/14/19 05:25 WBC 12.97 H Hgb 10.2 L Plt Count 355 IMAGING: CT of the head negative. Chest x-ray negative. CT of the abdomen and pelvis with IV contrast shows a large periaortic mass which does not appear to be typical of an aneurysm, most likely represents an enlarged kira mass/lymphoma or periaortic fibrosis. He has fatty liver, no bulging or nodules. The mass measures 5.3 x 7.2 x 8.9 cm. ASSESSMENT AND PLAN: Hematemesis Acute blood loss anemia Retroperitoneal mass Syncope Folate deficiency Leukocytosis CAD Tobacco abuse Mr. Fuentes Fox is a 63-year-old gentleman with past medical history of hypertension, hyperlipidemia, coronary artery disease status post stents, tobacco abuse, presents with acute upper gastrointestinal bleed and syncopal episode found to have folate deficiency, leukocytosis, and RP mass. Hgb 10.2 from 13 on a dmission. We are holding aspirin. He is asymptomatic currently. Will plan diagnostic EGD to rule out luminal lesion. If negative, patient will probably need transfer for expedited workup including EUS with FNA of RP mass. NPO after MN for EGD. Continue PPI IV BID and daily H/H. Will follow with you. Please call with questions.
[2019-11-15 03:46] LABS: BASO# 0.05 X1000 (0.0-0.2); BASO% 0.4 % (0.0-0.8); EOS# 0.23 X1000 (0.0-0.7); EOS% 1.8 % (0.0-10.0); HEMOGLOBIN 9.8 g/dL (14.0-18.0); IMM GRAN# 0.04 X1000 (0.0-0.04); IMM GRAN% 0.3 % (0.0-0.5); LYMPH# 2.14 X1000 (1.2-3.4); LYMPH% 16.8 % (20.5-51.1); MCH 29.1 PG (27-31); MCHC 32.7 g/dL (33-37); MONO# 1.13 X1000 (0.11-0.59); MONO% 8.9 % (1.7-9.3); MPV 9.6 FL (7.4-10.4); NEUT# 9.13 X1000 (1.4-6.5); NEUT% 71.8 % (42.2-75.2); PLT 348 X1000 (130-400); RBC 3.37 XMIL (4.7-6.1); RDW 13.8 % (11.5-14.5); WBC 12.72 X1000 (4.8-10.8)
[2019-11-15 04:00] LABS: AGAP 11; BUN 14 mg/dL (8-22); CALCIUM 8.8 mg/dL (8.8-10.2); CHLORIDE 104 mmol/L (98-107); COSMO 280; CREATININE 0.9 mg/dL (0.7-1.2); ESTIMATED GFR > 60; GLUCOSE 97 mg/dL (70-104); MAGNESIUM 1.8 mg/dL (1.5-2.7); POTASSIUM 3.6 mmol/L (3.5-5.1); SODIUM 140 mmol/L (136-145); TCO2 25 mmol/L (25-35)
[2019-11-15] MEDS ORDERED: SODIUM CHLORIDE 0.9% 10 ML ONE ×2 (06:18→07:46)
[2019-11-15] MEDS ORDERED: DIPRIVAN 1% ONE ×2 (07:30→07:33)
[2019-11-15] MEDS ORDERED: XYLOCAINE-MPF 2% ONE (07:31)
[2019-11-15] MEDS ORDERED: ROBINUL ONE (07:31)
[2019-11-15] MEDS: PROTONIX IV SCH ×2 (08:35→20:10)
[2019-11-15] MEDS ORDERED: VERSED ONE (08:56)
[2019-11-15] MEDS: THERA M PLUS PO SCH (08:56)
--- NOTE | 2019-11-15 09:23 | ENDOSCOPY OPERATIVE NOTE ---
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 PROCEDURE PERFORMED: EGD w/ biopsy MEDICATIONS: Per Anesthesia ESTIMATED BLOOD LOSS: None CONSENT: The patient understands the risks and benefits of the procedure and understands that these r isks include, but are not limited to: sedation, allergic reaction, infection, perforation and/or bleeding. Alternative means of evaluation and treatment include, among others: physical exam, x-rays, and/or surgical intervention. The patient elects to proceed with this endoscopic procedure. DESCRIPTION OF PROCEDURE: During pre-op preparation period all mechanical and medical equipment was c hecked for proper function. Hand hygiene and appropriate measures for infection prevention was taken. After the risks, benefits and alternatives of the procedure were thoroughly explained, Informed consent was verified, confirmed and timeout was successfully executed by the treatment team. The patient was anesthetized with topical anesthesia and the [id number]-[id number] ([id number]) endoscope was introduced through the mouth and advanced to the second portion of the duoden um. Retroflexion was performed in the stomach and revealed an ulcer. The gastroscope was then slowly withdrawn and re moved. The patient's toleration of the procedure was good. ESOPHAGUS: Z Line was noted at 50 cms approximately from the incisors. The mucosa of the esophagus appeared normal. STOMACH: A single non-bleeding, round and deep ulcer with heaped up edges was found in the cardia. B iopsies were taken at edge of the ulcer. The stomach otherwise appeared normal. DUODENUM: The duodenal mucosa showed no abnormalities in the duodenal bulb, 1st part duodenum, and 2n d part duodenum. ADVERSE EVENTS: There were no complications. IMPRESSIONS: 1. Z Line was noted at 50 cms approximately from the incisors 2. The mucosa of the esophagus appeared normal 3. Single ulcer was found in the cardia; biopsies were taken 4. The stomach otherwise appeared normal 5. The duodenal mucosa showed no abnormalities in the duodenal bulb, 1st part duodenum, and 2nd part duodenum RECOMMENDATIONS: 1. Await biopsy results 2. Oncology consult for work up of Para-aortic mass. Start Clear liquid diet today Transfuse as needed. Start Carafate 1g every 6 hours for 6 weeks 3. Await biopsy results 4. Continue PPI BID for now 5. Await biopsy results 6. Avoid NSAIDs REPEAT EXAM: Return in 3 months for EGD. Gil Gonzalez MD eSigned: Gil Gonzalez MD 11/15/2019 9:22 AM CC: CPT CODES: [id number] Upper gastrointestinal endoscopy including esophagus, stomach, and either the du odenum and/or jejunum as appropriate; with biopsy, single or multiple ICD CODES: The ICD and CPT codes recommended by this software are interpretations from the data that the [facility] staff has captured with the software. The verification of the translation of this report to the ICD and CPT co zora and modifiers is the sole responsibility of the health care institution and practicing physician where this report was generated. [employer] will not be held responsible for the validity of the ICD and CPT codes i ncluded on this report. [facility] assumes no liability for data contained or not contained herein. CPT is a registered tra demark of the [employer]. PATIENT NAME: Fuentes Fox MR#: [id number]
[2019-11-15] MEDS: CARAFATE PO SCH ×3 (10:07→22:15)
--- NOTE | 2019-11-15 13:04 | GENERAL SURGERY PROGRESS NOTE ---
DATE: 11/15/2019 SUBJECTIVE: The patient denies abdominal pain, hematemesis, or other complaints. His EGD this morning was accomplished, showing an ulcer in the cardia of the stomach. No active bleeding. Biopsies were obtained. OBJECTIVE: Vital Signs: He is afebrile. Vital signs are stable. General: He is awake, alert, and oriented x3. No acute distress. Gastrointestinal: Soft, nontender, nondistended. LABORATORY DATA: Hemoglobin 9.8, hematocrit 30. ASSESSMENT AND PLAN: A 63-year-old male with bleeding gastric ulcer status post biopsy. The bleeding appears to have stopped. He is hemodynamically stable. He also has a large, likely incidental paraaortic mass. I have discussed this with the patient and with Dr. Melanie Leon, and we both think he could be discharged home with short-term followup for an endoscopic ultrasound- guided fine-needle biopsy in [place]. Dr. Leon and Dr. Gonzalez will get that set up. I will be available as needed. cc: Bogdan Gaines MD
--- NOTE | 2019-11-15 13:38 | HEMO/ONC CONSULTATION ---
DATE: 11/15/2019 REQUESTING PHYSICIAN: The patient was seen in initial consultation at the request of Dr. Frost. REASON FOR CONSULTATION: Retroperitoneal mass. HISTORY OF PRESENT ILLNESS: The patient presented to the emergency room on the date of admission with coffee-grounds emesis. Prior to that time, he had a few days of right lower quadrant abdominal pain. Otherwise, he had been in his usual state of health per the patient and his who was on Face Time during our consultation. He denies any fevers, chills, chest pain, shortness of breath, or recent weight loss. PAST MEDICAL HISTORY: Significant for coronary artery disease, hypertension, osteoarthritis. PAST SURGICAL HISTORY: Neck surgery, knee surgery, and coronary stent. ALLERGIES: Naproxen. SOCIAL HISTORY: One pack per day tobacco. No alcohol. Patient is and lives with his . FAMILY MEDICAL HISTORY: Negative for cancer. MEDICATIONS: Reviewed, per chart. REVIEW OF SYSTEMS: Pertinent positives and negatives as per HPI. All other review of systems are negative. PHYSICAL EXAMINATION: Temperature 98.3 degrees, pulse 87, respiratory rate 18, blood pressure 110/84, O2 saturation 97% on 2 L. General: This is chronically ill-appearing, man in no acute distress. His is on Face Time during our consultation. Eyes: Sclerae anicteric. Cardiovascular: Regular rate and rhythm. Normal S1, S2. No murmurs, rubs, or gallops. Pulmonary: Lungs are clear to auscultation bilaterally without wheezes, rales, or rhonchi. GI: Abdomen is soft, nontender, nondistended, with no palpable masses. Lymphatic: No palpable abnormal cervical, supraclavicular, axillary, or inguinal adenopathy. EGD showed, per patient's 's report, a gastric ulcer that was biopsied. IMAGING: CT of the abdomen and pelvis 11/12/2019 shows fatty liver, adrenal nodules, and a 5.3 x 7.2 x 8.9 cm periaortic mass, suspicious for lymphoma versus fibrosis. CT of head negative. Chest x-ray negative. LABS: White count 24.6, hemoglobin 11.2, platelet count 454,000, down to today, white count 12.7, hemoglobin 9.8, platelet count 348,000. INR 1.18. Creatinine 0.9. Total bilirubin normal, alkaline phosphatase 175. LDH 570. Ferritin 214, iron 63, total protein 4.9, albumin 2.8. Folic acid 5.8, B12 of 247. ASSESSMENT AND PLAN: 1. Gastrointestinal bleed: Likely related to gastric ulcers, status post endoscopy. Monitor overnight. The patient has been placed on a proton pump inhibitor, Carafate per gastroenterology. Follow up on biopsy results. 2. Periaortic mass: Suspicious for lymphoma. His LDH is elevated. Endoscopic ultrasound biopsy would be most feasible, given the mediastinal location. We can set him up for outpatient biopsy and see him back in the office for followup of those results as needed. 3. Folic acid deficiency: Patient has been started on folic acid supplementation. 4. B-12 deficiency: I have recommended B12 supplementation, which I will start at this time. Thank you for this consultation and the opportunity to participate in the care of this patient. I will follow along and leave further recommendations as indicated. cc: MD Gil Zuluaga MD Alexis R. Penot, MD
[2019-11-15] MEDS ORDERED: DUONEB (A & A) INH PRN (15:42)
--- NOTE | 2019-11-15 16:00 | PROGRESS NOTE ---
DATE: 11/15/2019 SUBJECTIVE: Patient has no major complaints. He would like to go home. OBJECTIVE: Vital signs: Blood pressure is 110/84, heart rate of 87, respiratory rate of 15, temperature 98.3 degrees, 94% on room air. Cardiovascular: Regular rate and rhythm. Pulmonary: Bilateral breath sounds clear to auscultation. GI: Soft, nontender, nondistended. Bowel sounds are positive. DIAGNOSTIC DATA: White count 12, hemoglobin and hematocrit 9 and 30, platelets 348,000. Basic was normal. PROBLEM LIST: 1. Acute gastrointestinal bleed due to aspirin. Hemoglobin and hematocrit, there is slight decrease but may be related to hydration. We will continue to monitor per GI recommendations at least another 24 hours. 2. Acute blood loss anemia. He has received no transfusions. We will continue to monitor his H H slowly. 3. Large periaortic mass with concern over most likely a lymphoma. Plan is to do a mediastinal biopsy but that will be accomplished as an outpatient, as it cannot be done here at this facility and will likely need to be done in [place]. Dr. Leon and Dr. Gaines are handling that. 4. Hypertension which appears to be stable. DISPOSITION: I anticipate discharge hopefully in next 24 hours pending senior treasury consultant recommendation. cc: Hermes Frost MD
[2019-11-15 16:39] LABS: BASO# 0.06 X1000 (0.0-0.2); BASO% 0.5 % (0.0-0.8); EOS# 0.19 X1000 (0.0-0.7); EOS% 1.5 % (0.0-10.0); HEMATOCRIT 32.3 % (42.0-52.0); HEMOGLOBIN 10.6 g/dL (14.0-18.0); IMM GRAN# 0.04 X1000 (0.0-0.04); IMM GRAN% 0.3 % (0.0-0.5); LYMPH# 1.75 X1000 (1.2-3.4); LYMPH% 14.1 % (20.5-51.1); MCH 29.3 PG (27-31); MCHC 32.8 g/dL (33-37); MCV 89.2 FL (81-99); MONO# 0.89 X1000 (0.11-0.59); MONO% 7.1 % (1.7-9.3); MPV 9.9 FL (7.4-10.4); NEUT# 9.52 X1000 (1.4-6.5); NEUT% 76.5 % (42.2-75.2); PLT 349 X1000 (130-400); RBC 3.62 XMIL (4.7-6.1); RDW 13.9 % (11.5-14.5); WBC 12.45 X1000 (4.8-10.8)
[2019-11-15] MEDS ORDERED: LIPITOR PO SCH (21:00)
[2019-11-16] MEDS: CARAFATE PO SCH ×3 (04:44→09:28)
[2019-11-16] MEDS ORDERED: SODIUM CHLORIDE 0.9% 10 ML ONE ×2 (06:10→07:34)
[2019-11-16 06:13] LABS: AGAP 12; BUN 11 mg/dL (8-22); CALCIUM 8.7 mg/dL (8.8-10.2); CHLORIDE 100 mmol/L (98-107); COSMO 277; ESTIMATED GFR > 60; GLUCOSE 97 mg/dL (70-104); POTASSIUM 3.3 mmol/L (3.5-5.1); SODIUM 139 mmol/L (136-145); TCO2 27 mmol/L (25-35)
[2019-11-16] MEDS ORDERED: NS 10 ML IV PRN (08:26)
[2019-11-16] MEDS: PROTONIX IV SCH (08:31)
[2019-11-16] MEDS: THERA M PLUS PO SCH (08:31)
[2019-11-16] MEDS ORDERED: KLOR-CON PO ONE (10:57)
[2019-11-16 11:11] LABS: HEMATOCRIT 31.2 % (42.0-52.0); HEMOGLOBIN 9.9 g/dL (14.0-18.0); MCH 28.7 PG (27-31); MCHC 31.7 g/dL (33-37); MCV 90.4 FL (81-99); MPV 10.8 FL (7.4-10.4); RBC 3.45 XMIL (4.7-6.1); WBC 12.34 X1000 (4.8-10.8)
[2019-11-16 11:16] VITALS: BP 125/81
--- NOTE | 2019-11-16 11:57 | GASTROENTEROLOGY PROGRESS NOTE ---
DATE: 11/16/2019 SUBJECTIVE: Mr. Fox is a 63-year-old, male, resting in bed. Denies any nausea, vomiting, or abdominal pain. He has denied noticing any more further bleeding episodes. The patient denied having any bowel movements today. He is currently on a clear liquid diet, and he is able to tolerate his diet well. Patient mentioned that he was getting discharged today. OBJECTIVE: Vital Signs: Temperature 98 degrees, pulse 79, respirations 18, blood pressure is 113/71, oxygen saturation is 93% on 2 L nasal cannula. The patient's weight is 197 pounds, BMI is 29.1 kg/m2. General: He is alert and oriented x3, and in no acute distress. HEENT: Pale conjunctivae. No icterus. PERRL. Neck: Supple. Lungs: Clear to auscultation. Cardiovascular: Regular rate and rhythm. Abdomen: Soft, nontender, nondistended. Active bowel sounds heard in all 4 quadrants. Extremities: No clubbing, no cyanosis, no edema. Pedal pulses 2+ present bilaterally. Neurologic: Alert and oriented x3. LABORATORY DATA: WBCs are 12.45, RBCs 3.62, hemoglobin is 10.6, hematocrit is 32.3, platelet count is 349,000. Sodium 139, potassium 3.3, chloride 100, carbon dioxide 27, anion gap is 12, BUN is 11, creatinine is 1.0, glucose is 97, calcium is 8.7. Total bilirubin is 0.28, AST 15, ALT 16, alkaline phosphatase is 122, albumin 2.8. IMPRESSION AND PLAN: Hematemesis Acute blood loss anemia Folate deficiency Para-aortic mass Leukocytosis Hypokalemia Syncope CAD Tobacco abuse PLAN: Mr. Fox is a 63-year-old, male with a history of coronary artery disease. GI is following him for his upper GI bleed. The patient had an EGD done yesterday. He had a single nonbleeding, round and deep ulcer with heaped up edges found in the cardia. Biopsies were taken. Duodenal mucosa showed no abnormalities, and the mucosa of the esophagus appeared normal. Oncology is following the patient for his para-aortic mass. He will need and o/p EUS with biopsies for suspicious lymphoma. We will continue the patient with PPIs twice a day. Awaiting the results of his pathology report. The patient is on multivitamin for his anemia. He is also receiving Carafate 1 gram p.o. every 6 hours. The patient will need a return EGD in 3 months. We have asked the patient to follow up with Dr. Gonzalez in 4 weeks. The patient is currently on a clear liquid diet. We have advanced his diet to GI soft diet. He is getting discharged, we will follow him as an o/p. This plan was discussed with Dr. Beltrán. Please call us for any further questions or concerns. Dictated by DIVINA Silveira for Santino Beltrán MD [facility]
--- NOTE | 2019-11-16 13:30 | HEMO/ONC PROGRESS NOTE ---
DATE: 11/16/2019 CHIEF COMPLAINT: Going home. HISTORY OF PRESENT ILLNESS: Mr. Fox had a good night overnight and has not noted any additional bleeding or vomiting. He is being discharged home today for outpatient followup. He denies any fevers or chills. REVIEW OF SYSTEMS: Complete review of systems negative except as per HPI. PHYSICAL EXAMINATION: The patient is afebrile and vital signs are stable. General: This is a well-developed, well-nourished, man in no acute distress. He is unaccompanied at the bedside at the time of consultation. Eyes: Sclerae are anicteric. Cardiovascular: Regular rate and rhythm. No murmurs, rubs, or gallops. 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 pylori positive. ASSESSMENT AND PLAN: 1. Periaortic mass: Suspicious for lymphoma. I reviewed the preliminary pathology with the patient today during my visit. We discussed that special stains are pending and hopefully the full diagnosis can be made with the current biopsy specimen. I have discussed this case with Dr. Shelby Mariano. We will see him in the office or do a telemedicine visit within the next 5 days to go over final results. It is still possible that he needs an EUS-FNA for additional tissue. If that is the case, then we will set that up as an outpatient. 2. Helicobacter pylori positivity and gastric ulcer: He is being started on Helicobacter pylori treatment via Dr. Gonzalez. I have spoken with Dr. Gonzalez today regarding his case as well. He will follow up as an outpatient from that standpoint too. cc: Melanie Leon MD
--- NOTE | 2019-11-16 13:42 | DISCHARGE SUMMARY ---
ADMISSION DATE: 11/12/2019 DISCHARGE DATE: 11/16/2019 DISCHARGE DIAGNOSES: 1. Large gastric ulcer and a primary gastrointestinal bleed from ulcer. 2. A large periaortic mass with concern over possible lymphoma. 3. Anemia associated with acute blood loss. 4. Hypertension. 5. History of coronary artery disease status post PCI. CONSULTATIONS: 1. gastroenterology Dr. Leon, Dr. Beltrán, Carlos, gastroenterology, Dr. Parsons, general surgery. PROCEDURES: Endoscopy on 11/15/2019, which showed a single ulcer in the cardia of the stomach. Otherwise negative. HISTORY OF PRESENT ILLNESS: Briefly, a 63-year-old male coming in with coffee-grounds emesis. He is on aspirin. He has been dizzy, essentially orthostatic. He was admitted, placed on IV PPI. He had a CT scan which showed a fatemeh aortic mass. Surgery was consulted and felt that this will need biopsy but did not feel necessarily that this was causing his bleeding, so he ended up undergoing endoscopy when feasible, which was on the , with again showed as far as I can tell, non bleeding ulcer, but was a large ulcer. Biopsies were taken. He was monitored. His hemoglobin and hematocrit was 13 when he came in, dropped to 11, dropped to 10, dropped to 9.9 at discharge but was stable since the at 9.8. He had no further bleeding and was felt stable for discharge. Oncology was consulted and recommended close follow-up for biopsy of his periaortic mass with concern over possible lymphoma. He has been on folic acid. His B12 level looked okay. I guess it was low normal but I will supplement his folate. DISCHARGE INSTRUCTIONS: He will need to avoid NSAIDs. I think he can resume his aspirin at low dose enteric-coated in about a week. He will need to follow up with Dr. Gonzalez in about 4 weeks, follow up with Dr. Manrique next week to set up outpatient periaortic mass biopsy. He will need a repeat CBC at that time. It looks like he has been referred to Dr. Anderson. DISCHARGE MEDICATIONS: Amlodipine 5 daily, aspirin 81 daily and resume in a week, Carafate 1 g q.6 for a month, folic acid 1 daily, Lopressor 25 daily, Prilosec 40 b.i.d. for a month and then 40 daily subsequently. DISCHARGE CONDITION: Stable. TIME SPENT: 32 minute discharge. cc: MD Gil Vale MD Michael Kelso, MD Dr. Shah
== END 2019-11-16 13:22 | disposition home or self-care (01) | DRG 378 ==
LOC: ED 17:29 → SUATTDRO 17:30 → 2N 17:30
PROVIDERS: ATTEND Internal Medicine